=== PATIENT | male | born 1970 | race Hispanic/Latino ===

== ENCOUNTER → 2018-07-22 | Outpatient (REF) | payer OTHER ==
[2018-07-22 08:20] LABS: URINE BILIRUBIN - DIPSTICK NEGATIVE (NEGATIVE); URINE BLOOD DIPSTICK SMALL (NEGATIVE); URINE COLOR YELLOW; URINE GLUCOSE - DIPSTICK NEGATIVE (NEGATIVE); URINE KETONE NEGATIVE (NEGATIVE); URINE LEUK ESTERASE NEGATIVE (Negative); URINE NITRITE - DIPSTICK NEGATIVE (Negative); URINE PROTEIN - DIPSTICK NEGATIVE (NEG-TRACE); URINE SPECIFIC GRAVITY 1.025; URINE UROBILINOGEN - DIPSTICK 0.2 E.U./dL (0.2)
[2018-07-22 08:24] LABS: URINE CLARITY CLEAR
[2018-07-22 08:30] LABS: HEMOGLOBIN 17.9 g/dl (14.0-18.0); IMMATURE GRANULOCYTES 0.9 % (0.0-5.0); MEAN CELL VOLUME 88.4 fL CALC (80.0-100.0); MEAN CORPUSCULAR HGB 29.3 pG CALC (26.0-32.0); MEAN CORPUSCULAR HGB CONC 33.1 g/L CALC (32.0-36.0); NEUT# 3.66 thou/uL (1.82-7.42); RED BLOOD COUNT 6.11 mill/uL (4.70-6.10); RED CELL DISTRI WIDTH 12.8 % (11.5-15.5)
[2018-07-22 08:34] LABS: URINE WBC 0-2 WBC/hpf (0-5)
[2018-07-22 08:46] LABS: ALBUMIN 4.6 g/dL (3.2-5.0); ALKALINE PHOSPHATASE 111 u/l (38-126); ANION GAP 17 (6-22 (CALC)); BILIRUBIN, TOTAL 0.9 mg/dL (0.0-1.4); BUN 17 mg/dL (9-20); BUN/CREATININE RATIO 14 (12-20 (CALC)); CARBON DIOXIDE 28 mmol/l (22-30); CHLORIDE 99 mmol/l (95-108); CREATININE 1.2 mg/dL (0.7-1.3); GFR > 60 ML/MIN (>=60 (CALC)); GFR FOR AFR.AMER. > 60 ML/MIN (>=60 (CALC)); POTASSIUM 4.1 mmol/l (3.5-5.1); SGOT/AST 51 u/l (17-59); SODIUM 140 mmol/l (137-146); TOTAL PROTEIN 7.9 g/dL (6.3-8.2)
== END | disposition home or self-care (01) | DRG 392 ==
LOC: LABSPEC 07:34
PROVIDERS: ATTEND Internal Medicine
DX: R10.31 Right lower quadrant pain (principal)

== ENCOUNTER 2019-03-11 17:02 | Emergency (ER) | payer OTHER ==
[~2019-03-11] VITALS: Ht 185.4 cm; Wt 150.0 kg
[2019-03-11] MEDS ORDERED: DICYCLOMINE10 MG PO (18:10)
[2019-03-11] MEDS ORDERED: DELZICOL PO (18:10)
[2019-03-11] MEDS ORDERED: LOPRESSOR50 M2 PO (18:11)
[2019-03-11] MEDS ORDERED: HYTRIN2 MG PO (18:11)
[2019-03-11] MEDS ORDERED: PROTONIX40 M2 PO (18:12)
[2019-03-11] MEDS ORDERED: DANDRUFF11 EX (18:15)
[2019-03-11] MEDS ORDERED: HM ASPIRIN EC L81 MG PO (18:16)
[2019-03-11] MEDS ORDERED: LISINOPRIL10 MG PO (18:17)
[2019-03-11] MEDS ORDERED: BACTRIM DS1 TAB PO (18:17)
[2019-03-11] MEDS ORDERED: BACTROBAN TOP (18:18)
[2019-03-11] MEDS ORDERED: CLINDAMYCIN HY150 MG PO (18:19)
[2019-03-11] MEDS ORDERED: [UNRECOGNIZED DRUG - CODE] RE (18:20)
[2019-03-11] MEDS ORDERED: TYLENOL325 M2 PO (18:21)
[2019-03-11] MEDS ORDERED: METHOCARBAM750 MG PO (18:22)
[2019-03-11] MEDS ORDERED: PROBIOTI2 PO (18:23)
[2019-03-11 18:58] LABS: HEMATOCRIT 53.1 % (39.0-50.0); HEMOGLOBIN 17.6 g/dl (14.0-18.0); IMMATURE GRANULOCYTES 0.8 % (0.0-5.0); MEAN CELL VOLUME 88.5 fL CALC (80.0-100.0); MEAN CORPUSCULAR HGB 29.3 pG CALC (26.0-32.0); MEAN CORPUSCULAR HGB CONC 33.1 g/L CALC (32.0-36.0); NEUT# 4.46 thou/uL (1.82-7.42); RED CELL DISTRI WIDTH 12.5 % (11.5-15.5)
[2019-03-11 19:20] LABS: ALBUMIN 4.5 g/dL (3.2-5.0); ALKALINE PHOSPHATASE 88 u/l (38-126); BUN 17 mg/dL (9-20); BUN/CREATININE RATIO 14 (12-20 (CALC)); CARBON DIOXIDE 25 mmol/l (22-30); CHLORIDE 101 mmol/l (95-108); CREATININE 1.2 mg/dL (0.7-1.3); GFR > 60 ML/MIN (>=60 (CALC)); GFR FOR AFR.AMER. > 60 ML/MIN (>=60 (CALC)); SGOT/AST 51 u/l (17-59); SODIUM 138 mmol/l (137-146); TOTAL PROTEIN 8.2 g/dL (6.3-8.2)
[2019-03-11 19:24] LABS: ANION GAP 17 (6-22 (CALC)); BILIRUBIN, TOTAL 0.5 mg/dL (0.0-1.4); POTASSIUM 5.1 mmol/l (3.5-5.1)
[2019-03-11 21:03] VITALS: BP 122/74
== END 2019-03-11 21:04 | DRG 607 ==
LOC: ED 17:02
PROVIDERS: Emergency Medicine
DX: R23.8 Other skin changes (principal); G81.94 Hemiplegia, unspecified affecting left nondominant side; I10 Essential (primary) hypertension; S19.9XXS Unspecified injury of neck, sequela; X58.XXXS Exposure to other specified factors, sequela